=== PATIENT | male | born 1995 | race Caucasian/White ===

== ENCOUNTER 2025-09-27 19:19 | Emergency (ER) | payer SELFPAY ==
[~2025-09-27] VITALS: Ht 167.6 cm; Wt 71.0 kg
[2025-09-27 19:25] VITALS: O2SAT 99
[2025-09-27] MEDS: LIDOCAINE HCL 1% 20ML VIAL INFIL ONE (20:45)
[2025-09-27] MEDS ORDERED: BACITRACIN ZINC OINT UDPKT TOP ONE (20:45)
[2025-09-27] MEDS: BACITRACIN ZINC OINT UDPKT TOP SCH (22:19)
[2025-09-27] MEDS ORDERED: BO1 TP (22:34)
[2025-09-27] MEDS: TETANUS, DIPHTHERIA, PERTUSSIS VAC/PF 0.5ML (>10YR OLD) IM ONE (22:45)
[2025-09-27 22:55] VITALS: BP 139/98; PULSE 71; RESP 16; TEMP 36.5; O2SAT 98
== END 2025-09-27 23:00 | disposition home or self-care (01) ==
LOC: ER 19:19
DX: S61.212A Laceration without foreign body of right middle finger without damage to nail, initial encounter (principal); X58.XXXA Exposure to other specified factors, initial encounter; Y93.89 Activity, other specified; Y92.89 Other specified places as the place of occurrence of the external cause; Y99.8 Other external cause status
CPT/HCPCS: 12001; 90471; 90715; 99283